=== PATIENT | female | born 1960 | race Caucasian/White ===

== ENCOUNTER 2019-08-08 12:18 | Emergency (ER) | payer MEDICARE, MEDICAID ==
[~2019-08-08] VITALS: Wt 78.5 kg
[~2019-08-08 12:18] MED LIST: FISH OIL500 M1 PO; TOPROL XL50 M1 PO; VITAMIN D1000 IU PO
[2019-08-08 12:46] LABS: BASO % 0.4 % (0.0-1.0); EOS # 0.2 10*3/uL (0.0-0.4); EOS % 2.8 % (1.0-4.0); HEMATOCRIT 28.2 % (37.0-47.0); HEMOGLOBIN 8.9 g/dl (12.0-16.0); LYMPH # 1.7 10*3/uL (1.3-4.4); LYMPH % 23.2 % (27.0-41.0); MEAN CELL VOLUME 103.7 fl (81.0-99.0); MEAN CORPUSCULAR HGB 32.7 pg (27.0-31.0); MEAN CORPUSCULAR HGB CONC 31.6 g/dl (33.0-37.0); MEAN PLATELET VOLUME 9.5 fl (9.6-12.3); MONO # 0.7 10*3/uL (0.1-1.0); MONO % 9.2 % (3.0-9.0); NEUT # 4.6 10*3/uL (2.3-7.9); NEUT % 64.1 % (47.0-73.0); PLATELET COUNT AUTOMATED 311 10*3/uL (130-400); RED BLOOD COUNT 2.72 10*6/uL (4.10-5.10); RED CELL DISTRI WIDTH 13.7 % (0-14.5); WHITE BLOOD COUNT 7.2 10*3/uL (4.8-10.8)
[2019-08-08 12:57] LABS: ACT PARTIAL THROMBO TIME 23.6 SECONDS (20.0-32.1)
[2019-08-08 13:02] LABS: ALBUMIN 3.5 gm/dl (3.1-4.5); ALKALINE PHOSPHATASE 31 U/L (45-117); BUN 45 mg/dl (7-24); CHLORIDE 108 mmol/L (98-107); CREATININE 3.33 mg/dL (0.55-1.02); POTASSIUM 4.8 mmol/L (3.5-5.1); SGOT/AST 23 IU/L (3-35); SGPT/ALT 26 U/L (12-78); SODIUM 140 mmol/L (136-145); TOTAL PROTEIN 7.6 gm/dL (6.4-8.2)
[2019-08-08 13:04] LABS: TROPONIN I < 0.015 ng/ml (<0.045)
== END 2019-08-08 18:17 | disposition home or self-care (01) ==
LOC: ED 12:18
PROVIDERS: Emergency Medicine
DX: R06.02 Shortness of breath (principal); R05 Cough; R06.00 Dyspnea, unspecified; I10 Essential (primary) hypertension; Z79.899 Other long term (current) drug therapy

== ENCOUNTER → 2021-09-09 | Outpatient (CLI) | payer OTHER, MEDICAID ==
[~2021-09-09] MED LIST changes: +PEPCID20 MG PO; +SODIUM BICARBO650 MG PO
== END | disposition home or self-care (01) ==
LOC: CT 08:00
PROVIDERS: ATTEND Family Medicine
DX: I34.0 Nonrheumatic mitral (valve) insufficiency (principal); J98.11 Atelectasis; K44.9 Diaphragmatic hernia without obstruction or gangrene; J98.4 Other disorders of lung; Z76.82 Awaiting organ transplant status

== ENCOUNTER → 2021-09-11 | Outpatient (CLI) | payer OTHER, MEDICAID | LOC: CARD 01:30 | PROVIDERS: ATTEND Family Medicine | DX: R06.02 Shortness of breath (principal); R53.81 Other malaise; Z76.82 Awaiting organ transplant status ==

== ENCOUNTER → 2023-09-30 | Outpatient (CLI) | payer OTHER, MEDICAID ==
[~2023-09-30] MED LIST changes: +Regadenoson 0.4 MG/5 ML SYR IV ONE
== END | disposition home or self-care (01) ==
LOC: CARD 00:04
PROVIDERS: ATTEND Internal Medicine Cardiovascular Disease
DX: Z01.810 Encounter for preprocedural cardiovascular examination (principal); I31.39 Other pericardial effusion (noninflammatory); I34.0 Nonrheumatic mitral (valve) insufficiency; N18.6 End stage renal disease; Z76.82 Awaiting organ transplant status; Z99.2 Dependence on renal dialysis

== ENCOUNTER → 2025-03-15 | Outpatient (CLI) | payer OTHER, MEDICAID ==
[~2025-03-15] MED LIST changes: +CALCIUM500 M1 PO; +OXYBUTYNIN5 MG PO; +Technetium Tc 99M Tetrofosmi 0.23 MG KIT IJ SCH
== END | disposition home or self-care (01) ==
LOC: CARD 00:19
PROVIDERS: ATTEND Internal Medicine Nephrology
DX: I07.1 Rheumatic tricuspid insufficiency (principal); R06.02 Shortness of breath; Z76.82 Awaiting organ transplant status